=== PATIENT | female | born 1955 | race Caucasian/White ===

== ENCOUNTER 2022-11-29 11:13 | Outpatient (REF) | payer MEDICARE, OTHER, SELFPAY ==
[2022-11-29 12:57] LABS: Internal Control Within Normal Limits; Respiratory Syncytial Virus Not Detected (NOT DETECTE); SARS-CoV-2 Ag POSITIVE (NEGATIVE)
[2022-11-29 12:58] LABS: Influenza Virus A Antigen Negative; Influenza Virus B Antigen Negative; Internal Control Within Normal Limits
== END 2022-11-29 11:14 | disposition home or self-care (01) ==
LOC: LAB 11:13
PROVIDERS: PCP Internal Medicine; Visit Provider Internal Medicine
DX: R50.9 Fever, unspecified (principal)
CPT/HCPCS: 87420; 87804; 87811

== ENCOUNTER 2024-06-03 08:50 | Outpatient (RCR) | payer MEDICARE, OTHER, SELFPAY | END 2024-06-04 06:53 | disposition home or self-care (01) | LOC: PT 08:50 | PROVIDERS: PCP Internal Medicine | DX: M76.61 Achilles tendinitis, right leg (principal); M24.571 Contracture, right ankle | CPT/HCPCS: 97161 ==

== ENCOUNTER 2024-07-24 12:55 | Outpatient (OUT) | payer MEDICARE, OTHER, SELFPAY ==
--- NOTE | 2024-07-24 | XR_ITS ---
The [address] [address] Patient Name: RUTH ROMO MRN: [id number] date: 1955 Sex: F Assigned Patient Location: RAD Current Patient Location: [facility] Accession/Order Number: [id number] Exam Date: 07/24/2024 13:40 Report Date: 07/24/2024 13:40 At the request of: CHAS ARCHER Procedure: XR abdomen 1V KUB: CLINICAL INFORMATION: Constipation COMPARISON: None FINDINGS: Moderate stool burden. No bowel obstruction or free air. Osseous structures demonstrate degenerative changes. XR/XR abdomen 1V IMPRESSION: MODERATE STOOL BURDEN SUSPICIOUS FOR CONSTIPATION. NO ACUTE PROCESS. Impression dictated by: Bashir Tompkins Jr.OGregory 07/24/2024 1:40 PM Dictation Location: [place] [address] Electronically authenticated by: [id number] Y Date: 07/24/2024 13:40
== END 2024-07-24 12:56 | disposition home or self-care (01) ==
PROVIDERS: PCP Internal Medicine; Visit Provider Physician Assistant
DX: K59.00 Constipation, unspecified (principal)
CPT/HCPCS: 74018